=== PATIENT | male | born 1930 | race Hispanic/Latino ===

== ENCOUNTER 2018-08-17 13:00 | Emergency (ER) | payer MEDICARE, MEDICAID ==
[2018-08-17 13:15] VITALS: RESP 18; O2SAT 99; BMI 31.5
--- NOTE | 2018-08-17 13:24 | ED PDOC ---
Arrival/HPI - General Historian: Patient - History of Present Illness Narrative History of Present Illness (Text): 08/17/18 13:23 Patient is an 88yo M with PMH of Afib on coumadin, CHF, hypertension, diabetes, and Parkinson's who presents to the ED s/p fall this morning. He reports trying to transfer from wheelchair to chair which he does daily without difficulty however today his hand slipped which caused him to fall onto his face. He denies preceding dizziness, lightheadedness, blurry vision, and denies loss of consciousness. He reports pain in the right forehead where he suffered a laceration. He reports history of falls in the past. He denies chest pain, shortness of breath, abdominal pain, nausea, vomiting, numbness, tingling, dysuria. Time/Duration: Prior to Arrival <Orly Vega - Last Filed: 08/17/18 14:53> <Issac Lopez - Last Filed: 08/17/18 18:34> - General Chief Complaint: Trauma Time Seen by Provider: 08/17/18 13:02 Past Medical History - Infectious Disease Hx of Infectious Diseases: None - Tetanus Immunization Tetanus Immunization: Unknown - Cardiac Hx Cardiac Disorders: Yes (AFIB) Hx Hypertension: Yes - Pulmonary Hx Respiratory Disorders: No - Neurological Hx Parkinson's Disease: Yes - HEENT Hx HEENT Disorder: No - Renal Other/Comment: Renal Insufficiency - Endocrine/Metabolic Hx Diabetes Mellitus Type 2: Yes - Hematological/Oncological Hx Anemia: Yes - Integumentary Hx Dermatological Disorder: No - Musculoskeletal/Rheumatological Hx Arthritis: Yes (B/L KNEES) - Gastrointestinal Hx Gastrointestinal Disorders: No - Genitourinary/Gynecological Hx Genitourinary Disorders: Yes (Frequency, dribbling) - Psychiatric Hx Depression: No Hx Substance Use: No - Past Surgical History Past Surgical History: No Previous - Surgical History Hx Coronary Stent: Yes - Anesthesia Hx Anesthesia Reactions: No Hx Malignant Hyperthermia: No - Suicidal Assessment Feels Threatened In Home Enviroment: No <Orly Vega - Last Filed: 08/17/18 14:53> Family/Social History Family/Social History: No Known Family HX Smoking Status: Former Smoker Hx Alcohol Use: No Hx Substance Use: No <Orly Vega - Last Filed: 08/17/18 14:53> Allergies/Home Meds <Orly Vega - Last Filed: 08/17/18 14:53> <Issac Lopez - Last Filed: 08/17/18 18:34> Allergies/Adverse Reactions: Allergies No Known Allergies Allergy (Verified 01/09/18 09:03) Home Medications: Home Meds Medication Instructions Recorded Confirmed Atorvastatin Calcium [Lipitor] 40 mg PO HS 08/21/11 05/04/17 Gabapentin 100 mg PO BID 08/21/11 05/04/17 Glipizide 10 mg PO DAILY 08/21/11 05/04/17 Timolol 0.5% Ophth [Timoptic 0.5% 1 drop OP HS 08/21/11 05/04/17 Ophth Soln] Carbidopa/Levodopa 1 tab PO QID 12/29/13 05/04/17 [Carbidopa-Levodopa 25-250 Tab] Metoprolol Succinate 50 mg PO DAILY 12/29/13 05/04/17 Warfarin [Coumadin] 1 mg PO .JEANMARIE RUBIO SAT 01/31/14 05/04/17 Acetaminophen [Tylenol] 650 mg PO Q4 PRN 02/07/14 05/04/17 Amino AC/Protein Hydr/Whey Pro 30 ml PO BID 02/07/14 05/04/17 [Prosource Plus Protein Liquid] Collagenase [Santyl] 250 unit TP DAILY 02/07/14 05/04/17 Dimethicone [Proshield Plus Skin 0 applic TOP Q8 02/07/14 05/04/17 Protectant] Furosemide [Lasix] 40 mg PO DAILY 02/07/14 05/04/17 Lorazepam [Ativan] 0.5 mg PO DAILY PRN 02/07/14 05/04/17 Multivitamin 1 tab PO DAILY 02/07/14 05/04/17 Mupirocin 2% Nasal [Bactroban 2% 0 gm TOP Q12 02/07/14 05/04/17 Nasal] Ropinirole HCl [Ropinirole ER] 4 mg PO HS 02/07/14 05/04/17 Warfarin [Coumadin] 2 mg PO MWF 02/07/14 05/04/17 Docusate Sodium [Colace] 100 mg PO HS 05/04/17 05/04/17 Isosorbide Mononitrate [Isosorbide 30 mg PO DAILY 05/04/17 05/04/17 Mononitrate ER] Linagliptin [Tradjenta] 5 mg PO DAILY 05/04/17 05/04/17 Promethazine HCl/Codeine 5 ml PO DAILY 05/04/17 05/04/17 [Prometh-Codein 6.25-10 mg/5 ml] Tamsulosin HCl [Flomax] 0.4 mg PO DAILY 05/04/17 05/04/17 Review of Systems - Review of Systems Constitutional: Normal Eyes: Normal. absent: Vision Changes ENT: Normal Respiratory: Normal. absent: SOB Cardiovascular: Normal. absent: Chest Pain Genitourinary Male: Normal. absent: Dysuria Musculoskeletal: Normal Skin: Laceration Neurological: Normal. absent: Headache, Dizziness, Speech Changes, Facial Droop Endocrine: Normal Hemo/Lymphatic: Normal Psychiatric: Normal <Orly Vega - Last Filed: 08/17/18 14:53> Physical Exam Vital Signs Reviewed: Yes Vital Signs Temp Pulse Resp BP Pulse Ox 08/17/18 13:14 98.2 F 62 18 150/66 99 Temperature: Afebrile Blood Pressure: Hypertensive Pulse: Regular Respiratory Rate: Normal Appearance: Positive for: Well-Appearing, Non-Toxic, Comfortable Pain Distress: None Mental Status: Positive for: Alert and Oriented X 3 - Systems Exam Head: Present: Laceration (2cm laceration on R forehead with minimal bleeding) Pupils: Present: PERRL Extroacular Muscles: Present: EOMI Conjunctiva: Present: Normal Mouth: Present: Moist Mucous Membranes Neck: Present: Normal Range of Motion Respiratory/Chest: Present: Clear to Auscultation, Good Air Exchange. No: Respiratory Distress, Accessory Muscle Use Cardiovascular: Present: Normal S1, S2, Irregular Rhythm. No: Murmurs Back: Present: Pain with Leg Raise Upper Extremity: Present: Normal Inspection, Normal ROM, Neurovascularly Intact. No: Cyanosis, Edema Lower Extremity: Present: Normal Inspection, Normal ROM. No: Edema Neurological: Present: GCS=15, CN II-XII Intact, Speech Normal, Motor Func Grossly Intact, Normal Sensory Function Skin: Present: Laceration. No: Warm, Dry, Rashes, Normal Color Psychiatric: Present: Alert, Oriented x 3, Normal Insight, Normal Concentration <Orly Vega - Last Filed: 08/17/18 14:53> Vital Signs Temp Pulse Resp BP Pulse Ox 08/17/18 13:14 98.2 F 62 18 150/66 99 <JeetYris maxil - Last Filed: 08/17/18 18:34> Medical Decision Making ED Course and Treatment: 08/17/18 13:33 Forehead laceration - CBC, CMP, Coags - CT head - repair 08/17/18 14:46 CT negative for hemorrhage. Repair with dermabond. <Orly Vega - Last Filed: 08/17/18 14:53> ED Course and Treatment: 08/17/18 18:13 Patient Seen with Resident: In agreement with resident note which contains more details about the patient. Patient seen and evaluated with resident. Came up with plan and treatment together. 08/17/18 18:33 pt seen with resdient s/p mechamincal fall on [facility]. inr 2. no hemorrhage. no rose. strict return precautiosn advied for delayed bleed - Lab Interpretations Lab Results: PT 30.4 SECONDS (9.4-12.5) H 08/17/18 14:15 INR 2.74 08/17/18 14:15 APTT 43.8 Seconds (26.9-38.3) H 08/17/18 14:15 Total Bilirubin 0.4 mg/dL (0.2-1.3) 08/17/18 14:15 AST 32 U/L (17-59) 08/17/18 14:15 ALT 11 U/L (7-56) 08/17/18 14:15 Alkaline Phosphatase 77 U/L (38-126) 08/17/18 14:15 Total Protein 7.4 g/dL (5.8-8.3) 08/17/18 14:15 Albumin 4.2 g/dL (3.0-4.8) 08/17/18 14:15 Globulin 3.3 gm/dL 08/17/18 14:15 Albumin/Globulin Ratio 1.3 (1.1-1.8) 08/17/18 14:15 - RAD Interpretation Radiology Orders: 08/17/18 13:24 HEAD W/O CONTRAST [CT] Stat <Issac Lopez - Last Filed: 08/17/18 18:34> - PA / RISK COMPLIANCE MANAGER / Resident Statement / has reviewed & agrees with the documentation as recorded. / has examined the patient and agrees with the treatment plan. <Issac Lopez - Last Filed: 08/17/18 18:34> Disposition/Present on Arrival - Present on Arrival Any Indicators Present on Arrival: No History of DVT/PE: No History of Uncontrolled Diabetes: No Urinary Catheter: No History Surgical Site Infection Following: None - Disposition Have Diagnosis and Disposition been Completed?: Yes Disposition Time: 14:54 <Orly Vega - Last Filed: 08/17/18 14:53> - Present on Arrival Any Indicators Present on Arrival: No <Issac Lopez - Last Filed: 08/17/18 18:34> - Disposition Diagnosis: Frequent falls, Parkinson disease, Laceration, Head injury Disposition: HOME/ ROUTINE Patient Problems: Current Active Problems Problem Status Onset Frequent falls Acute Laceration Acute Parkinson disease Acute Condition: STABLE Discharge Instructions (ExitCare): Laceration Repair With Glue (DC) Additional Instructions: Please follow up with your primary care physician within 2 days. Allow the glue to dry and fall off on its own. If symptoms worsen, return to the emergency department. Forms: [employer] (Citizen [place])
[2018-08-17 14:21] LABS: BASO # 0.02 K/mm3 (0.0-2.0); BASO % 0.2 % (0.0-3.0); EOS # 0.3 (0.0-0.7); EOS % 3.3 % (1.5-5.0); HEMOGLOBIN 12.5 g/dL (14.0-18.0); LYMPH # 1.4 (1.2-3.4); LYMPH % 17.5 % (22.0-35.0); MEAN CELL VOLUME 89.5 fl (80.0-105.0); MEAN CORPUSCULAR HGB CONC 31.3 g/dl (31.0-37.0); MEAN PLATELET VOLUME 10.3 fl (7.0-11.0); MONO # 0.6 (0.1-0.6); MONO % 7.3 % (1.0-6.0); RBC 4.47 10^6/uL (3.5-6.1); RED CELL DISTRIBUTION WIDTH 13.9 % (11.5-14.5); WHITE BLOOD COUNT 8.2 10^3/uL (4.5-11.0)
[2018-08-17 14:32] LABS: ALB/GLOB RATIO 1.3 (1.1-1.8); ALBUMIN 4.2 g/dL (3.0-4.8); CALCIUM 9.9 mg/dL (8.4-10.5)
[2018-08-17 14:33] LABS: INR 2.74; PARTIAL THROMBOPLASTIN TIME 43.8 Seconds (26.9-38.3); PROTHROMBIN TIME 30.4 SECONDS (9.4-12.5)
--- NOTE | 2018-08-17 14:38 | CT ---
Date of service: 08/17/2018 PROCEDURE: CT HEAD WITHOUT CONTRAST. HISTORY: s/p fall, pt on coumadin COMPARISON: 01/09/2018 TECHNIQUE: Axial computed tomography images were obtained through the head/brain without intravenous contrast. Radiation dose: Total exam DLP = 869.96 mGy-cm. This CT exam was performed using one or more of the following dose reduction techniques: Automated exposure control, adjustment of the mA and/or kV according to patient size, and/or use of iterative reconstruction technique. FINDINGS: HEMORRHAGE: No intracranial hemorrhage. BRAIN: No mass effect or edema. Mild diffuse age-appropriate cerebral atrophy. Mild periventricular white matter lucency consistent with chronic microvascular ischemic change. No evidence of acute infarct. VENTRICLES: Unremarkable. No hydrocephalus. CALVARIUM: Unremarkable. PARANASAL SINUSES: There is an air-fluid level in the right maxillary sinus which may reflect acute sinusitis. Please correlate clinically. MASTOID AIR CELLS: Unremarkable as visualized. No inflammatory changes. OTHER FINDINGS: None. IMPRESSION: Possible acute right maxillary sinusitis. Age related atrophy and chronic white matter ischemic change. No additional abnormality.
[2018-08-17 18:45] VITALS: BP 149/71; PULSE 64; TEMP 98
== END 2018-08-17 19:47 | disposition home or self-care (01) ==
LOC: ED 13:00
DX: S01.81XA Laceration without foreign body of other part of head, initial encounter (principal); W05.0XXA Fall from non-moving wheelchair, initial encounter; Z91.81 History of falling; Y92.129 Unspecified place in nursing home as the place of occurrence of the external cause; G20 Parkinson's disease; I11.0 Hypertensive heart disease with heart failure; I48.91 Unspecified atrial fibrillation; I50.9 Heart failure, unspecified; E11.9 Type 2 diabetes mellitus without complications; Z95.5 Presence of coronary angioplasty implant and graft; Z79.01 Long term (current) use of anticoagulants; Z87.891 Personal history of nicotine dependence